=== PATIENT | male | born 1990 | race Caucasian/White ===

== ENCOUNTER 2020-07-28 19:01 | Emergency (ER) | payer BC ==
[~2020-07-28] VITALS: Ht 175.3 cm; Wt 70.3 kg
[2020-07-28] MEDS ORDERED: ACETAMINOPHEN ES 500 MG TABLET ONE (19:16)
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
[2020-07-28] MEDS ORDERED: ACETAMINOPHEN ES 500 MG TABLET PO ONE (19:30)
[2020-07-28 20:07] VITALS: BP 124/86
--- NOTE | 2020-07-28 20:07 | NUR ---
Patient discharged to home in stable condition. Written and verbal after care instructions given. Patient verbalizes understanding of instruction.pt. ambulatory with a steady gait
== END 2020-07-28 20:08 | disposition home or self-care (01) ==
LOC: ER 19:01
DX: S06.0X0A Concussion without loss of consciousness, initial encounter (principal); S13.4XXA Sprain of ligaments of cervical spine, initial encounter; S50.12XA Contusion of left forearm, initial encounter; S00.12XA Contusion of left eyelid and periocular area, initial encounter; V49.49XA Driver injured in collision with other motor vehicles in traffic accident, initial encounter; Y93.89 Activity, other specified; Y92.488 Other paved roadways as the place of occurrence of the external cause; Y99.8 Other external cause status
CPT/HCPCS: 70450; 72125; 99285; L0172